=== PATIENT | male | born 1965 | race Caucasian/White ===

== ENCOUNTER 2016-11-10 18:50 | Emergency (ER) | payer OTHER ==
[~2016-11-10] VITALS: Ht 182.9 cm; Wt 113.2 kg
[2016-11-10 18:53] VITALS: BP 129/84
[2016-11-10] MEDS ORDERED: GABA300C10 PO (19:24)
== END 2016-11-10 20:02 | disposition home or self-care (01) ==
LOC: ED 20:01
DX: S60.211A Contusion of right wrist, initial encounter (principal); W19.XXXA Unspecified fall, initial encounter; Y93.89 Activity, other specified; Y92.89 Other specified places as the place of occurrence of the external cause; Y99.8 Other external cause status
CPT/HCPCS: 29125